=== PATIENT | female | born 1935 | race African-American/Black ===

== ENCOUNTER 2021-10-24 20:39 | Observation (INO) | payer BC, SELFPAY ==
[~2021-10-24] VITALS: Ht 154.9 cm; Wt 67.2 kg
[~2021-10-24 20:39] MED LIST: ASPI-1393 PO
[2021-10-24 20:48] VITALS: BP_SYST 117
[2021-10-24 21:06] LABS: HEMATOCRIT 38.9 % (36-48); HEMOGLOBIN 12.4 g/dL (12.0-16.0); MEAN CORPUSCULAR HEMOGLOBIN 28 pg (27-31); MEAN CORPUSCULAR HGB CONC 32 % (32-36); MEAN CORPUSCULAR VOLUME 88 fL (79.0-98.0); PLATELET COUNT (AUTO) 128 K/uL (130-430); RED BLOOD CELL COUNT(AUTO) 4.43 MIL/uL (4.2-6.2); RED CELL DISTRIBUTION WIDTH 14.5 % (9.0-15.0); WHITE BLOOD COUNT (AUTO) 3.9 K/uL (4.8-10.8)
[2021-10-24 21:24] LABS: INR 1.1 (0.8-1.2); PROTHROMBIN TIME 10.8 SECS (9.5-12.5)
[2021-10-24 21:31] LABS: ANION GAP 5 (5-15); CALCIUM 10.6 mg/dL (8.4-11.0); CHLORIDE 104 mmol/L (98-107); CREATININE 1.45 mg/dL (0.55-1.30); GLUCOSE 107 mg/dL (70-99); POTASSIUM 4.2 mmol/L (3.5-5.1); SODIUM SERUM 141 mmol/L (136-145); UREA NITROGEN, BLOOD 9 mg/dL (8-21)
[2021-10-24 21:39] LABS: ALANINE AMINOTRANSFERASE 18 U/L (12-78); ALBUMIN 3.1 g/dL (3.4-4.8); ASPARTATE AMINOTRANSFERASE 27 U/L (10-37); TOTAL BILIRUBIN 0.2 mg/dL (0.0-1.0)
[2021-10-24 21:49] LABS: ALCOHOL, BLOOD < 3 mg/dL (<10)
[2021-10-24 22:03] LABS: BAND % (MANUAL) 1 % (0-6); BASOPHILS % (MANUAL) 0 % (0-2); EOSINOPHILS % (MANUAL) 6 % (0-7); LYMPHOCYTES % (MANUAL) 60 % (20-46); MONOCYTES % (MANUAL) 8 % (0-11)
[2021-10-24 23:15] LABS: BILIRUBIN,URINE 1+ (NEGATIVE); BLOOD, URINE NEGATIVE (NEGATIVE); CLARITY/URINE CLEAR (CLEAR); COLOR,URINE ORANGE (YELLOW); GLUCOSE,URINE NEGATIVE (NEGATIVE); KETONES,URINE TRACE (NEGATIVE); LEUKOCYTE ESTERASE ,URINE NEGATIVE (NEGATIVE); NITRITE, URINE NEGATIVE (NEGATIVE); PROTEIN URINE 1+ (NEGATIVE)
[2021-10-24 23:25] LABS: BACTERIA,URINE FEW /HPF (None Seen); MUCUS,URINE 1+ /LPF (None Seen); RBC,URINE 0-3 /HPF (0-3); WBC,URINE 0-3 /HPF (0-3)
[2021-10-25] MEDS ORDERED: ACETAMINOPHEN 325 MG TABLET PO PRN (00:45)
[2021-10-25] MEDS ORDERED: ALBUTEROL SULFATE 0.083% 2.5 MG/3 ML VIAL.NEB INH PRN (00:45)
[2021-10-25] MEDS: NACL 0.9% 1,000 ML IV SCH ×4 (00:54→21:30)
[2021-10-25 02:53] VITALS: BP_SYST 155
[2021-10-25 04:19] VITALS: BP_SYST 155
[2021-10-25 08:00] VITALS: BP_SYST 161
[2021-10-25] MEDS ORDERED: HYDROcodone/ACETAMIN 7.5-325 MG TAB PO PRN (09:00)
[2021-10-25] MEDS ORDERED: ZOLPIDEM TARTRATE 5 MG TABLET PO PRN (09:00)
[2021-10-25] MEDS ORDERED: DOCUSATE SODIUM 100 MG/10 ML UDC PO PRN (09:00)
[2021-10-25] MEDS ORDERED: ONDANSETRON HCL 4 MG/2 ML VIAL IVP PRN (09:00)
[2021-10-25] MEDS ORDERED: ACETAMINOPHEN 500 MG TABLET PO PRN (09:00)
[2021-10-25] MEDS ORDERED: guaiFENesin/DEXTROMETHORPHAN 10 ML UDC PO PRN (09:00)
[2021-10-25] MEDS ORDERED: PANTOPRAZOLE SODIUM 40 MG TAB PO ONE (09:15)
[2021-10-25 10:25] LABS: AMYLASE 28 U/L (0-100); ANION GAP 11 (5-15); CHLORIDE 106 mmol/L (98-107); CHOLESTEROL 177 mg/dL (<200); CREATININE 1.18 mg/dL (0.55-1.30); GLUCOSE 97 mg/dL (70-99); HDL CHOLESTEROL 46 mg/dL (>55); LDL CHOLESTEROL 108 mg/dL (<100); LIPASE 96 U/L (73-393); PHOSPHORUS 3.5 mg/dL (2.7-4.5); POTASSIUM 3.5 mmol/L (3.5-5.1); SODIUM SERUM 143 mmol/L (136-145); TRIGLYCERIDES 80 mg/dL (30-150)
[2021-10-25 10:45] LABS: UREA NITROGEN, BLOOD 10 mg/dL (8-21)
[2021-10-25 10:46] LABS: FREE T4 (FREE THYROXINE) 0.8 ng/dL (0.6-1.6)
[2021-10-25 11:00] LABS: PROTHROMBIN TIME 10.4 SECS (9.5-12.5)
[2021-10-25 12:00] VITALS: BP_SYST 147
[2021-10-25] MEDS: cefTRIAXone 1 GM in D5W 50 ML IV SCH (12:41)
[2021-10-25] MEDS: GABAPENTIN 300 MG CAPSULE PO SCH ×2 (15:01→21:09)
[2021-10-25 16:00] VITALS: BP_SYST 143
[2021-10-25] MEDS: MONTELUKAST 10 MG TABLET PO SCH (17:28)
[2021-10-25 20:00] VITALS: BP_SYST 170
[2021-10-26] VITALS (7 sets, daily range): BP systolic 129–166
[2021-10-26] MEDS: NACL 0.9% 1,000 ML IV SCH ×3 (03:25→16:45)
[2021-10-26 07:55] LABS: BASOPHILS % (AUTO) 0.6 % (0.0-2.0); EOSINOPHILS # (AUTO) 0.2 K/uL (0.0-0.4); EOSINOPHILS % (AUTO) 7.4 % (0.0-4.0); HEMATOCRIT 34.9 % (36-48); HEMOGLOBIN 11.1 g/dL (12.0-16.0); LYMPHOCYTES % (AUTO) 31.6 % (20.5-51.5); MEAN CORPUSCULAR HEMOGLOBIN 28 pg (27-31); MEAN CORPUSCULAR HGB CONC 32 % (32-36); MEAN CORPUSCULAR VOLUME 87 fL (79.0-98.0); MONOCYTES # (AUTO) 0.4 K/uL (0.0-1.0); NEUTROPHILS # (AUTO) 1.6 K/uL (1.8-7.7); NEUTROPHILS % (AUTO) 47.4 % (40.0-70.0); PLATELET COUNT (AUTO) 106 K/uL (130-430); RED BLOOD CELL COUNT(AUTO) 4.02 MIL/uL (4.2-6.2); RED CELL DISTRIBUTION WIDTH 14.3 % (9.0-15.0); WHITE BLOOD COUNT (AUTO) 3.3 K/uL (4.8-10.8)
[2021-10-26] MEDS: GABAPENTIN 300 MG CAPSULE PO SCH ×3 (08:49→21:46)
[2021-10-26] MEDS: cefTRIAXone 1 GM in D5W 50 ML IV SCH (08:51)
[2021-10-26 08:59] LABS: ALANINE AMINOTRANSFERASE 19 U/L (12-78); ALBUMIN 2.8 g/dL (3.4-4.8); ANION GAP 8 (5-15); ASPARTATE AMINOTRANSFERASE 21 U/L (10-37); CALCIUM 8.6 mg/dL (8.4-11.0); CHLORIDE 107 mmol/L (98-107); CREATININE 1.11 mg/dL (0.55-1.30); GLUCOSE 95 mg/dL (70-99); POTASSIUM 3.4 mmol/L (3.5-5.1); SODIUM SERUM 141 mmol/L (136-145); TOTAL BILIRUBIN 0.5 mg/dL (0.0-1.0); UREA NITROGEN, BLOOD 6 mg/dL (8-21)
[2021-10-26] MEDS ORDERED: DULoxetine HCL 30 MG CAPSULE.DR (CYMBALTA) PO SCH (09:00)
[2021-10-26] MEDS ORDERED: PANTOPRAZOLE SODIUM 40 MG TAB PO SCH (09:00)
[2021-10-26] MEDS ORDERED: POTASSIUM CHLORIDE 20 MEQ TAB.PRT.SR PO PRN (09:00)
[2021-10-26] MEDS ORDERED: ASPIRIN 81 MG TABLET(ECOTRIN) PO ONE (11:00)
[2021-10-26] MEDS ORDERED: cloNIDine HCL 0.1 MG TABLET PO ONE (15:00)
[2021-10-26] MEDS: MONTELUKAST 10 MG TABLET PO SCH (17:36)
[2021-10-27] MEDS ORDERED: ASPIRIN 81 MG TABLET(ECOTRIN) PO SCH (09:00)
== END 2021-10-26 22:50 | disposition home or self-care (01) ==
LOC: SED 20:39 → STU 10-25 00:44 → SMU 10-26 18:05
PROVIDERS: ADMIT Internal Medicine Hospice and Palliative Medicine; ATTEND Internal Medicine Hospice and Palliative Medicine
DX: R55 Syncope and collapse (principal); Z20.822 Contact with and (suspected) exposure to COVID-19; G93.41 Metabolic encephalopathy; E86.0 Dehydration; E78.5 Hyperlipidemia, unspecified; N39.0 Urinary tract infection, site not specified; I10 Essential (primary) hypertension; G62.9 Polyneuropathy, unspecified; J45.909 Unspecified asthma, uncomplicated; I25.10 Atherosclerotic heart disease of native coronary artery without angina pectoris; F03.90 Unspecified dementia, unspecified severity, without behavioral disturbance, psychotic disturbance, mood disturbance, and anxiety; Z85.528 Personal history of other malignant neoplasm of kidney; Z90.5 Acquired absence of kidney; Z90.710 Acquired absence of both cervix and uterus; Z79.899 Other long term (current) drug therapy
CPT/HCPCS: 36415 ×3; 70450 ×2; 71045 ×2; 76376 ×2; 80048; 80053 ×2; 80061; 81000; 82150; 83036; 83605; 83690; 83735; 83880; 84100; 84439; 84443; 84484 ×2; 85007; 85025; 85027; 85610 ×2; 85730 ×2; 87426; 92610; 93005 ×2; 93306; 93880; 96361 ×2; 96365; 96366; 97162; 99285; G0378 ×2; G0482; J0696 ×2; J7060 ×2

== ENCOUNTER 2021-11-19 15:37 | Emergency (ER) | payer BC ==
[~2021-11-19] VITALS: Ht 162.6 cm; Wt 64.4 kg
--- NOTE | 2021-11-19 15:46 | NUR ---
Placed in room 03 . Placed on cardiac cath technician, blood pressure machine and pulse oximeter. To gown for exam. Side rails up.
[2021-11-19 15:47] VITALS: BP_SYST 118
--- NOTE | 2021-11-19 15:54 | NUR ---
bedside examining patient.
--- NOTE | 2021-11-19 15:57 | NUR ---
Pt arrives via s ambulance from home. pt states was standing in kitchen and felt faint. loss of consciousness does not recall events to get here. skin intact. no pain, no n/v no signs of injury. alert and oriented x4. pt. states she did not have any intake for today and has no appetite. last BM noted yesterday morning.
[2021-11-19] MEDS ORDERED: NACL 0.9% 1,000 ML IV ONE (16:15)
--- NOTE | 2021-11-19 18:15 | NUR ---
hazardous waste material technician at bedside.
[2021-11-19 18:44] LABS: BASOPHILS % (AUTO) 0.7 % (0.0-2.0); EOSINOPHILS # (AUTO) 0.1 K/uL (0.0-0.4); EOSINOPHILS % (AUTO) 1.6 % (0.0-4.0); HEMATOCRIT 37.3 % (36-48); LYMPHOCYTES # (AUTO) 0.7 K/uL (1.0-5.5); LYMPHOCYTES % (AUTO) 21.4 % (20.5-51.5); MEAN CORPUSCULAR HEMOGLOBIN 28 pg (27-31); MEAN CORPUSCULAR HGB CONC 32 % (32-36); MEAN CORPUSCULAR VOLUME 87 fL (79.0-98.0); MONOCYTES # (AUTO) 0.3 K/uL (0.0-1.0); MONOCYTES % (AUTO) 9.4 % (1.7-9.3); NEUTROPHILS # (AUTO) 2.2 K/uL (1.8-7.7); NEUTROPHILS % (AUTO) 66.9 % (40.0-70.0); PLATELET COUNT (AUTO) 133 K/uL (130-430); RED BLOOD CELL COUNT(AUTO) 4.29 MIL/uL (4.2-6.2); RED CELL DISTRIBUTION WIDTH 14.7 % (9.0-15.0); WHITE BLOOD COUNT (AUTO) 3.2 K/uL (4.8-10.8)
[2021-11-19 19:01] LABS: ANION GAP 5 (5-15); CALCIUM 9.6 mg/dL (8.4-11.0); CHLORIDE 106 mmol/L (98-107); CREATININE 1.16 mg/dL (0.55-1.30); GLUCOSE 118 mg/dL (70-99); POTASSIUM 3.5 mmol/L (3.5-5.1); SODIUM SERUM 140 mmol/L (136-145); UREA NITROGEN, BLOOD 6 mg/dL (8-21)
[2021-11-19 19:09] LABS: ALANINE AMINOTRANSFERASE 15 U/L (12-78); ALBUMIN 3.1 g/dL (3.4-4.8); ASPARTATE AMINOTRANSFERASE 19 U/L (10-37); TOTAL BILIRUBIN 0.1 mg/dL (0.0-1.0)
[2021-11-19 19:25] LABS: PROTHROMBIN TIME 10.5 SECS (9.5-12.5)
[2021-11-19 19:33] LABS: ALCOHOL, BLOOD < 3 mg/dL (<10)
--- NOTE | 2021-11-19 19:35 | NUR ---
# 22 gauge angiocath placed to R HAND. Use of asceptic technique. Opsite placed over site. Blood return noted. Blood for lab drawn from site. Flushed with 10 cc of normal saline. No evidence of infiltration noted. Patient tolerated well. Addendum: 11/19/21 at 1937 by [email or web address] CANDACE Low
--- NOTE | 2021-11-19 20:39 | NUR ---
Spoke to mariella Farias regarding pending discharge. Daughter will be picking up pt around 2129.
--- NOTE | 2021-11-19 22:37 | NUR ---
Patient given written and verbal discharge instructions and verbalizes understanding. ER MD discussed with patient the results and treatment provided. Patient in stable condition. ID arm band removed. Patient educated on pain management and to follow up with PMD. Pain Scale [0]. Opportunity for questions provided and answered.
[2021-11-19 22:38] VITALS: BP_SYST 149
== END 2021-11-19 22:38 | disposition home or self-care (01) ==
LOC: SED 15:37
DX: R55 Syncope and collapse (principal); I10 Essential (primary) hypertension; Z79.899 Other long term (current) drug therapy
CPT/HCPCS: 36415; 71045; 80053; 84484; 85025; 85610; 85730; 93005; 96360; 96361; 99285; G0482; J7030